=== PATIENT | male | born 2000 | race Caucasian/White ===

== ENCOUNTER 2021-10-15 13:03 | Emergency (ER) | payer MEDICAID ==
[2021-10-15] MEDS ORDERED: Ketorolac 30 MG/ML SDV IM ONE (13:45)
== END 2021-10-15 14:20 | disposition home or self-care (01) ==
LOC: JP.ED 13:03
DX: M54.50 Low back pain, unspecified (principal); Z90.49 Acquired absence of other specified parts of digestive tract; Z79.899 Other long term (current) drug therapy
CPT/HCPCS: 96372; 99283; J1885